=== PATIENT | male | born 1970 | race Caucasian/White ===

== ENCOUNTER 2016-05-01 04:45 | Emergency (ER) | payer OTHER ==
[2016-05-01 04:50] VITALS: BP 132/88; PULSE 87; RESP 16; TEMP 98.4; O2SAT 94
--- NOTE | 2016-05-01 05:47 | EDPHY ---
H & P Stated Complaint: c/o akathisia x 2-3 weeks, pt unable to sleep Time Seen by Provider: 05/01/16 05:41 HPI/ROS: HPI The patient presents with feeling of restlessness that is keeping him up tonight. It has been constant for the last several hours and is rated as severe. He has been taking Artane for this and takes 10mg daily. He used to be on Cogentin but switched to Artane. His psychiatrist is out of town and he is looking for help. REVIEW OF SYSTEMS Constitutional: No fever, no chills. Eyes: No discharge. ENT: No sore throat. Cardiovascular: No chest pain, no palpitations. Respiratory: No cough, no shortness of breath. Gastrointestinal: No abdominal pain, no vomiting. Genitourinary: No hematuria. Musculoskeletal: No back pain. Skin: No rashes. Neurological: No headache. PMHx: schizoaffective, bipolar PHYSICAL General Appearance: Alert, no distress, pacing in the room Eyes: Pupils equal and round no pallor or injection ENT, Mouth: Mucous membranes moist Respiratory: breathing comfortably Neurological: A&O, moves all extremities Skin: Warm and dry, no rashes Musculoskeletal: Neck is supple non tender Extremities: symmetrical, full range of motion Psychiatric: Patient is oriented X 3, there is no agitation Source: Patient - Medical/Surgical History Hx Asthma: No Hx Chronic Respiratory Disease: No Hx Diabetes: No Hx Cardiac Disease: No Hx Renal Disease: No Hx Cirrhosis: No Hx Alcoholism: No Hx HIV/AIDS: No Hx Splenectomy or Spleen Trauma: No Other PMH: sleep apnea, bipolar, schizoaffective d/o, HTN, hypothyroid, nasal septum surg 2005, rt foot surgery 2013, CPAP - Social History Smoking Status: Former smoker Constitutional: Initial Vital Signs Temperature (C) 36.9 C 05/01/16 04:48 Heart Rate 87 05/01/16 04:48 Respiratory Rate 16 05/01/16 04:48 Blood Pressure 132/88 H 05/01/16 04:48 O2 Sat (%) 94 05/01/16 04:48 O2 Delivery Mode Room Air Allergies/Adverse Reactions: cats Allergy (Uncoded 08/10/15 19:50) Home Medications: Medication Instructions Recorded Levothyroxine [Synthroid 137 mcg 137 mcg PO DAILY06 12/24/14 (*)] [place] Carbonate ER [Eskalith Cr 1,350 mg PO HS 12/24/14 450 mg (*)] OXcarbazepine [Trileptal 300mg (*)] 1,500 mg PO DAILY@18 12/24/14 lamOTRIGine [Lamictal] 150 mg PO DAILY 12/24/14 lamOTRIGine [Lamotrigine] 25 mg PO DAILY 12/24/14 Latuda 08/10/15 Neurontin 08/10/15 Artane 05/01/16 Latuda 05/01/16 Losartan Potassium 05/01/16 Mirapex 05/01/16 TRIHEXYPHENIDYL HCL 5 mg PO TID #10 05/01/16 Medical Decision Making Differential Diagnosis: 45 yo M with schizoaffective, bipolar disorder, on multiple psych meds presents with restlessness, feels "akasthesias" he says. DDx includes akasthesia, insomnia, medication side effect. Reviewed his meds and he can increase his Artane dose to 15 mg daily, adding additional 5mg in TID dosing. He will follow up with his psychiatrist. Departure - Departure Disposition: Home, Routine, Self-Care Clinical Impression: Akathisia Condition: Good Instructions: Extrapyramidal Symptoms (ED) Additional Instructions: Please increase your Artane to 5 mg 3 times a day. You should follow up with your psychiatrist next week. Referrals: Dimitris Gama MD [Primary Care Provider] - As per Instructions Prescriptions: TRIHEXYPHENIDYL HCL 5 mg PO TID #10
== END 2016-05-01 06:23 | disposition home or self-care (01) ==
DX: G25.71 Drug induced akathisia (principal); I10 Essential (primary) hypertension; T44.3X5A Adverse effect of other parasympatholytics [anticholinergics and antimuscarinics] and spasmolytics, initial encounter; Z87.891 Personal history of nicotine dependence

== ENCOUNTER 2016-09-30 22:57 | Emergency (ER) | payer OTHER ==
[2016-09-30 23:09] VITALS: O2SAT 97
--- NOTE | 2016-09-30 23:32 | EDPHY ---
H & P Stated Complaint: auditory and visual hallucinations; thyroid level off - Personal History Current Tetanus/Diphtheria Vaccine: Yes - Medical/Surgical History Hx Asthma: No Hx Chronic Respiratory Disease: No Hx Diabetes: No Hx Cardiac Disease: No Hx Renal Disease: No Hx Cirrhosis: No Hx Alcoholism: No Hx HIV/AIDS: No Hx Splenectomy or Spleen Trauma: No Other PMH: PMHx: sleep apnea, bipolar, schizoaffective d/o, HTN, hypothyroid. PSHx: nasal septum surg 2005, rt foot surgery 2013 - Social History Smoking Status: Former smoker Time Seen by Provider: 09/30/16 23:13 HPI/ROS: CHIEF COMPLAINT: visual and auditory hallucination HISTORY OF PRESENT ILLNESS: 45-year-old male with history of bipolar disorder with psychotic features, followed by Dr. Yates Psychiatry, history of hypothyroidism, received a phone call from a nurse at [facility] informing him that his TSH level obtained 3 days ago was elevated and she recommend he go to the emergency department for evaluation. He has no complaints of acute pain or discomfort. He has been experiencing continuous auditory and visual hallucinations for quite some time. These hallucinations are not telling him to hurt himself or hurt anybody else, states that h PRIMARY CARE PROVIDER: Dr. Dimitris Gama REVIEW OF SYSTEMS: A ten point review of systems was performed and is negative with the exception of the items mentioned in the HPI PAST MEDICAL & SURGICAL HISTORY: Bipolar disorder SOCIAL HISTORY:nonsmoker PHYSICAL EXAM (Prior to examination, patient consented to physical exam, hands were washed and my usual and customary physical exam procedures followed) 1) GENERAL: Well-developed, well-nourished, alert and oriented. Appears to be in no acute distress. 2) HEAD: Normocephalic, atraumatic 3) HEENT: Pupils equal, round, reactive to light bilaterally. Sclera anicteric. 4) NECK: Full range of motion, no meningeal signs. 5) LUNGS: Clear auscultation bilaterally, no wheezes, no rhonchi, no retractions. 6) HEART: Regular rate and rhythm, no murmur, no heave, no gallop. 7) ABDOMEN: No guarding, no rebound, no focal tenderness, negative McBurney's 8) MUSCULOSKELETAL: No peripheral edema or discoloration. 9) BACK: No CVA tenderness 10) SKIN: No rash, no petechiae. 11) Psychiatric: Patient is oriented X 3, there is no agitation. DIFFERENTIAL DIAGNOSIS: in no particular include but limited to myxedema coma, thyroid storm, suicidal ideation, homicidal ideation (Andrzej,Pk Layne) Constitutional: Initial Vital Signs Temperature (C) 36.9 C 09/30/16 23:06 Heart Rate 63 09/30/16 23:06 Respiratory Rate 16 09/30/16 23:06 Blood Pressure 147/104 H 09/30/16 23:06 O2 Sat (%) 97 09/30/16 23:06 O2 Delivery Mode Room Air Allergies/Adverse Reactions: cats Allergy (Uncoded 08/10/15 19:50) Home Medications: Medication Instructions Recorded Levothyroxine [Synthroid 137 mcg 137 mcg PO DAILY06 12/24/14 (*)] [place] Carbonate ER [Eskalith Cr 1,350 mg PO HS 12/24/14 450 mg (*)] OXcarbazepine [Trileptal 300mg (*)] 1,500 mg PO DAILY@18 12/24/14 lamoTRIgine [Lamictal] 150 mg PO DAILY 12/24/14 lamoTRIgine [Lamotrigine] 25 mg PO DAILY 12/24/14 Latuda 08/10/15 Neurontin 08/10/15 Artane 05/01/16 Latuda 05/01/16 Losartan Potassium 05/01/16 Mirapex 05/01/16 TRIHEXYPHENIDYL HCL 5 mg PO TID #10 05/01/16 Seroquel 09/30/16 Seroquel 09/30/16 VITAMIN E 09/30/16 Vistaril 09/30/16 Medical Decision Making ED Course/Re-evaluation: PHYSICIAN DOCUMENTATION: The patient was evaluated and managed by the Physician Machinery Repair Maintenance Supervisor. My co- signature indicates that I have reviewed this chart and I agree with the findings and plan of care as documented. I am the secondary supervising physician. (Cathy Byrd) 11:26 p.m.: This patient is comp cooperative. I discussed and reviewed his laboratory results with him. Of note he had a TSH obtained 3 days ago which was mildly elevated at 5.060, he also had a therapeutic lithium level of 1.1 at that time. I have reviewed prior TSH levels with him and these have a fluctuating the past 2 high of 36 in 2013. At this time I think that acute thyroid pathology is less than likely the etiology of his ongoing visual and auditory hallucinations in the presence of his history of bipolar disorder for several years for which he is followed by Dr. Hong Yates. These hallucinations are not telling him to hurt himself or hurt anybody else. At this time I do not think that patient's medication dosages need to be emergently changed. Do not think the patient meets criteria for a 72 hour M1 hold, however I have offered to have our mental health loom checker consult with the patient which he declines. He states that he will contact Dr. Yates in the morning. Also recommend he consult and follow up with his primary care provider Dr. Solorzano tomorrow as well to discuss his other laboratory studies. The meantime should he develop thoughts of hurting self or others or any other symptoms needs to return to the ER immediately for re-evaluation. He feels comfortable with this plan. (Andrzej,Pk Layne) Departure - Departure Disposition: Home, Routine, Self-Care Clinical Impression: Hypothyroid Qualifiers: Hypothyroidism type: unspecified Qualified Code(s): E03.9 - Hypothyroidism, unspecified Condition: Good Instructions: Bipolar Disorder (ED), Hypothyroidism (ED) Additional Instructions: Return emergency department immediately if you develop thoughts of hurting yourself or others, if you develop fevers, flu-like symptoms or any other symptoms that concern you Referrals: Dimitris Gama MD [Primary Care Provider] - 1 day without fail Hong Yates MD [Medical Doctor] - 1 day without fail
[2016-09-30 23:42] VITALS: BP 145/97; PULSE 78; RESP 18; TEMP 98.1
== END 2016-09-30 23:42 | disposition home or self-care (01) ==
DX: E03.9 Hypothyroidism, unspecified (principal); I10 Essential (primary) hypertension; Z87.891 Personal history of nicotine dependence

== ENCOUNTER 2016-10-26 14:43 | Inpatient (IN) | payer OTHER ==
--- NOTE | 2016-10-26 15:12 | EDPHY ---
H & P Stated Complaint: Brought by therapist on M1 hold Time Seen by Provider: 10/26/16 15:00 HPI/ROS: CHIEF COMPLAINT: M1 HISTORY OF PRESENT ILLNESS: 45-year-old male history of schizoaffective disorder arrives on an M1 for increased paranoia believing strangers and acquaintances are calling him "child molester" and other demeaning things, believes others hate him, reluctant to leave his house. He was placed on M1 by therapist and therapist Dr. Rommel Denise have spoken and they would like to have the patient admitted to [facility]. The patient denies suicidal or homicidal ideation. Patient has no complaints of physical pain or discomfort. REVIEW OF SYSTEMS: A ten point review of systems was performed and is negative with the exception of the items mentioned in the HPI PAST MEDICAL & SURGICAL HISTORY: Schizoaffective disorder. Hypothyroid. Bipolar disorder. SOCIAL HISTORY: Denies alcohol or drug use PHYSICAL EXAM (Prior to examination, patient consented to physical exam, hands were washed and my usual and customary physical exam procedures followed) 1) GENERAL: Well-developed, well-nourished, alert and oriented. Appears distressed 2) HEAD: Normocephalic, atraumatic 3) HEENT: Pupils equal, round, reactive to light bilaterally. Sclera anicteric. 4) NECK: Full range of motion, no meningeal signs. 5) LUNGS: Clear auscultation bilaterally, no wheezes, no rhonchi, no retractions. 6) HEART: Regular rate and rhythm, no murmur, no heave, no gallop. 7) ABDOMEN: No guarding, no rebound, no focal tenderness, 8) MUSCULOSKELETAL: No peripheral edema or discoloration. 9) BACK: No CVA tenderness,. 10) SKIN: No rash, no petechiae. 11) Psychiatric: Patient is oriented X 3, there is no agitation. He appears distressed DIFFERENTIAL DIAGNOSIS: in no particular include but limited to schizoaffective disorder, suicidal ideation, homicidal ideation, paranoid - Personal History Current Tetanus Diphtheria and Acellular Pertussis (TDAP): Yes - Medical/Surgical History Hx Asthma: No Hx Chronic Respiratory Disease: No Hx Diabetes: No Hx Cardiac Disease: No Hx Renal Disease: No Hx Cirrhosis: No Hx Alcoholism: No Hx HIV/AIDS: No Hx Splenectomy or Spleen Trauma: No Other PMH: PMHx: sleep apnea, bipolar, schizoaffective d/o, HTN, hypothyroid. PSHx: nasal septum surg 2005, rt foot surgery 2013 - Social History Smoking Status: Former smoker Constitutional: Initial Vital Signs Temperature (C) 36.9 C 10/26/16 14:50 Heart Rate 64 10/26/16 14:50 Respiratory Rate 18 10/26/16 14:50 Blood Pressure 139/100 H 10/26/16 14:50 O2 Sat (%) 98 10/26/16 14:50 O2 Delivery Mode Room Air Allergies/Adverse Reactions: cats Allergy (Uncoded 08/10/15 19:50) Home Medications: Medication Instructions Recorded Artane 10/26/16 Gabapentin [Neurontin 100 MG (*)] 100 mg PO HS 10/26/16 Levothyroxine [Synthroid 137 mcg 137 mcg PO DAILY06 10/26/16 (*)] [place] Carbonate ER [Eskalith Cr 450 mg PO 10/26/16 450 mg (*)] Losartan Potassium [Cozaar 50 mg 50 mg PO 10/26/16 (*)] Lurasidone HCl [Latuda] 120 mg PO DAILY 10/26/16 OXcarbazepine [Trileptal 300mg (*)] 1,200 mg PO 10/26/16 Pramipexole Di-HCl [Mirapex 0.25 0.25 mg PO 10/26/16 mg (*)] QUEtiapine FUMARATE [Seroquel 800 mg PO 10/26/16 300mg (*)] hydrOXYzine HCL [Vistaril] 50 mg PO 10/26/16 lamoTRIgine [LamICTAL 100 MG (*)] 100 mg PO 10/26/16 Medical Decision Making ED Course/Re-evaluation: 6:37 p.m.: Informed by mental health shiftman the patient will be admitted to [address] [place] [address], admitting physician Dr. Gale. EMTALA paperwork completed. - Data Points Laboratory Results: Laboratory Results 10/26/16 15:12 10/26/16 15:12 08/28/17 08/28/17 15:12 15:12 WBC 6.70 10^3/uL 10^3/uL (3.80-9.50) RBC 4.77 10^6/uL 10^6/uL (4.40-6.38) Hgb 14.1 g/dL g/dL (13.7-17.5) Hct 42.0 % % (40.0-51.0) MCV 88.1 fL fL (81.5-99.8) MCH 29.6 pg pg (27.9-34.1) MCHC 33.6 g/dL g/dL (32.4-36.7) RDW 12.6 % % (11.5-15.2) Plt Count 432 10^3/uL H 10^3/uL (150-400) MPV 9.3 fL fL (8.7-11.7) Neut % (Auto) 67.7 % % (39.3-74.2) Lymph % (Auto) 23.9 % % (15.0-45.0) Ceiba % (Auto) 5.1 % % (4.5-13.0) Eos % (Auto) 2.4 % % (0.6-7.6) Baso % (Auto) 0.6 % % (0.3-1.7) Nucleat RBC Rel Count 0.0 % % (0.0-0.2) Absolute Neuts (auto) 4.54 10^3/uL 10^3/uL (1.70-6.50) Absolute Lymphs (auto) 1.60 10^3/uL 10^3/uL (1.00-3.00) Absolute Monos (auto) 0.34 10^3/uL 10^3/uL (0.30-0.80) Absolute Eos (auto) 0.16 10^3/uL 10^3/uL (0.03-0.40) Absolute Basos (auto) 0.04 10^3/uL 10^3/uL (0.02-0.10) Absolute Nucleated RBC 0.00 10^3/uL 10^3/uL (0-0.01) Immature Gran % 0.3 % % (0.0-1.1) Immature Gran # 0.02 10^3/uL 10^3/uL (0.00-0.10) Sodium 140 mEq/L mEq/L (134-144) Potassium 4.3 mEq/L mEq/L (3.5-5.2) Chloride 101 mEq/L mEq/L (97-110) Carbon Dioxide 25 mEq/l mEq/l (22-31) Anion Gap 14 mEq/L mEq/L (8-16) BUN 13 mg/dL mg/dL (7-23) Creatinine 0.9 mg/dL mg/dL (0.7-1.3) Estimated GFR > 60 Glucose 93 mg/dL mg/dL (70-100) Calcium 9.9 mg/dL mg/dL (8.5-10.4) TSH 3.790 uIU/mL uIU/mL (0.465-4.680) [place]ola 1.2 mEq/L mEq/L (0.6-1.2) Ethyl Alcohol < 10 mg/dL mg/dL (0-10) Departure - Departure Disposition: [facility] IP Clinical Impression: Paranoia Schizoaffective disorder Qualifiers: Schizoaffective disorder type: depressive Qualified Code(s): F25.1 - Schizoaffective disorder, depressive type Referrals: Dimitris Gama MD [Primary Care Provider] - As per Instructions
[2016-10-26 15:20] LABS: % IMMATURE GRANULYOCYTES 0.3 % (0.0-1.1); ABSOLUTE IMMATURE GRANULOCYTES 0.02 10^3/uL (0.00-0.10); ADD DIFF? NO; ADD MORPH? NO; ADD SCAN? NO; ATYPICAL LYMPHOCYTE FLAG 10 (0-99); FRAGMENT RBC FLAG 0 (0-99); HEMOGLOBIN 14.1 g/dL (13.7-17.5); LEFT SHIFT FLG 0 (0-99); LIPEMIA HEMOLYSIS FLAG 80 (0-99); MEAN CELL HEMOGLOBIN 29.6 pg (27.9-34.1); MEAN CELL HEMOGLOBIN CONCENTR. 33.6 g/dL (32.4-36.7); MEAN CELL VOLUME 88.1 fL (81.5-99.8); MEAN PLATELET VOLUME 9.3 fL (8.7-11.7); PLATELET CLUMPS FLAG 0 (0-99); PLATELET COUNT 432 10^3/uL (150-400); RED BLOOD CELL COUNT 4.77 10^6/uL (4.40-6.38); RED CELL DISTRIBUTION WIDTH 12.6 % (11.5-15.2)
[2016-10-26 15:41] LABS: ANION GAP 14 mEq/L (8-16); CALCIUM 9.9 mg/dL (8.5-10.4); CARBON DIOXIDE 25 mEq/l (22-31); CHLORIDE 101 mEq/L (97-110); CREATININE 0.9 mg/dL (0.7-1.3); ETHANOL SERUM < 10 mg/dL (0-10); GLOMERULAR FILTRATION RATE > 60; GLUCOSE 93 mg/dL (70-100); LITHIUM 1.2 mEq/L (0.6-1.2); POTASSIUM 4.3 mEq/L (3.5-5.2); SODIUM 140 mEq/L (134-144)
[2016-10-26] MEDS ORDERED: GABAPENTIN 400 MG CAP PO PRN (23:12)
[2016-10-26] MEDS ORDERED: LORazepam 0.5 MG TAB PO PRN (23:15)
[2016-10-26] MEDS ORDERED: MAGNESIUM HYDROXIDE 30 ML UDCUP PO PRN (23:15)
[2016-10-26] MEDS ORDERED: MAG HYDROX/AL HYDROX/SIMETH 30 ML UDCUP PO PRN (23:15)
[2016-10-26] MEDS ORDERED: NICOTINE POLACRILEX 2 MG GUM B PRN (23:15)
[2016-10-26] MEDS ORDERED: OLANZapine DISINTEGR 10 MG TAB PO PRN (23:15)
[2016-10-26] MEDS: LOSARTAN POTASSIUM 50 MG TAB PO SCH (23:49)
[2016-10-27] MEDS: ACETAMINOPHEN 325 MG TAB PO PRN (01:40)
[2016-10-27] MEDS: LOSARTAN POTASSIUM 50 MG TAB PO SCH (09:04)
[2016-10-27] MEDS: LITHIUM CARBONATE ER 450 MG TAB PO SCH ×3 (09:04→20:55)
[2016-10-27] MEDS: PRAMIPEXOLE 0.25 MG TAB PO SCH (09:05)
--- NOTE | 2016-10-27 09:32 | BAPA ---
[f rep st] ADMISSION PSYCHIATRIC ASSESSMENT CHIEF COMPLAINT: The patient is a 45-year-old male with schizoaffective disorder of the bipolar type, whose chief complaint to me today is, "I started hearing voices." HISTORY OF PRESENT ILLNESS: The patient is a 45-year-old man with schizoaffective disorder of the bipolar type who is followed by [facility]. He lives in his own apartment and generally does well. Over the past 2 months, he has been experiencing increased internal stimuli. In particular, he is hearing auditory hallucinations telling him derogatory things. For example, sometimes when he is alone in his apartment and sometimes when he is out in public, he hears a voice inside his head saying, "Nathanael is a child molester." There is no truth to this. This is one of his more common paranoid beliefs. He has also been experiencing paranoid ideas of reference. He thinks his neighbors are mad at him. He tells me at one point, "I can tell when they are leaving; they open the door and slam it." He thinks that some of his neighbors have moved out because of him. At one point, he tells me, "I would piss them off and they would leave." He enjoys playing his guitar, but has stopped doing so because he thinks that people do not like it. He tells me , "I don't play outside any more. It is not well received." He thinks people are critical of his guitar playing. He has been experiencing increased anxiety with these negative thoughts. Over the past 2 months, his treatment team added Seroquel to his medication regimen. The history I have suggests he had done well on a high dose of Latuda for a long period of time until these auditory hallucinations started to increase. I then added Seroquel, which unfortunately has not yet worked to decrease the auditory hallucinations or the anxiety. He denies that he is suicidal. They have no history of previous violence. He is worried that his hygiene is deteriorating, but his hygiene seems appropriate to us on the inpatient psychiatric unit. I wonder if his concerns about his decreased hygiene are delusional in nature. I do not have further extensive past history on him, but we believe it does exist. He has been a patient at the [facility] for several years at this point in time. We will work on collecting collateral information. CURRENT REVIEW OF SYSTEMS: He denies anhedonia, but at the same time readily admits he is not doing very much that is enjoyable at this point time. He describes his mood as, "okay." He tells me he sleeps generally well, but admits over the past 2 days he has not slept well in part because of going to the emergency room and coming to the inpatient psychiatric unit. His energy is generally good. His appetite has been low and he thinks he has lost as much as 20 pounds over the past 2 months. He denies suicidal thinking. He endorses ongoing auditory hallucinations as I described above. He endorses anxiety. He has paranoid ideas of reference. SOCIAL HISTORY: He denies tobacco use. He denies alcohol use. He denies drug use. He denies smoking marijuana. ALLERGIES: He denies any allergies to any medications. CURRENT MEDICATIONS: Eskalith extended release 450 mg 3 times daily. He is on Trileptal 1200 mg in the p.m. with dinner. He is on levothyroxine 0.137 mg daily. He is on Lamictal 25 mg at lunch time and 100 mg at bedtime. He is on 40 mg of Latuda in the morning and 120 mg of Latuda with dinner time. He takes 100 mg of Neurontin in the morning and 500 mg at bedtime. He is on losartan 50 mg daily. He takes Artane 2 mg in the morning and 5 mg at bedtime. He is on Mirapex 0.5 mg in the morning and 1 mg at bedtime. He takes 400 units of vitamin E daily. He is on 50 mg of Vistaril twice daily. His current dose of Seroquel is 800 mg at bedtime. PAST MEDICAL HISTORY: Remarkable for hypothyroidism and hypertension. PAST PSYCHIATRIC HISTORY: Schizoaffective disorder of the bipolar type, currently under care at [facility]. MENTAL STATUS EXAMINATION: He is awake and alert when I go to see him. He is casually dressed and well groomed. He is clean and neat in presentation. He is cooperative with the interview. His speech is not pressured, nor is it rapid. He makes reasonable eye contact during the interview. His stated mood and affect are congruent. There is a reduced range of affect. His thought processes are linear during the interview. He does express ideas of reference and paranoia. He does not appear to respond to internal stimuli during the interview with me and denies that he is experiencing them during our interview. His insight and judgment are both fair. IMPRESSION: The patient is a 45-year-old male with schizoaffective disorder of the bipolar type. This patient shows remarkably good insight into his schizoaffective disorder. He understands that his auditory hallucinations are not real. Interestingly, he does not recognize that he has ideas of reference which are delusional in nature. He does not appear to be having an exacerbation of his underlying mood problem that is clear to me. At the same time, I do wonder if part of the reason why he may be experiencing increased hallucinations is an exacerbation of underlying mood problems and that he may be more depressed, and he is acknowledging. I would build a case that not playing his guitar, not engaging many activities is field representatives director of an anhedonia, and possibly the anhedonia is the beginning of a mood issue, and possibly treating the mood issue might help improve the psychosis. I have spoken to his current outpatient psychiatrist, Hong Yates MD, and we will try first pushing the dose of Seroquel up a little higher. We will also get collateral information from other members of his team. Would give some consideration to starting antidepressants, possibly optimizing the dose of Eskalith. I would even give some consideration to ECT treatments in this patient. DIAGNOSIS: 1. Schizoaffective disorder, bipolar type, current episode unspecified, but possibly depressed. 2. Hypertension. 3. Hypothyroidism. PLAN: 1. Admit on a 72-hour mental health hold. 2. Continue to collect collateral information. 3. Consider increasing Seroquel and then consider other interventions over time. 4. Consider certification. /[id number]/MODL MTDD
[2016-10-27] MEDS: LEVOTHYROXINE 137 MCG TAB PO SCH (10:52)
--- NOTE | 2016-10-27 14:58 | BCON ---
[f rep st] BEHAVIORAL HEALTH CONSULTATION INPATIENT INTERNAL MEDICINE CONSULTATION DATE OF CONSULTATION: 10/27/2016 REFERRING PHYSICIAN: Carlos Rosario MD REASON FOR REFERRAL: Medical clearance for inpatient behavioral health stay. HISTORY OF PRESENT ILLNESS: This patient was referred to the emergency department on an M1 hold by his outpatient mental health provider for increased paranoia. He has history of schizoaffective disorder. He had recent adjustment of his medications with increase in quetiapine. He was evaluated by the mental health team and admitted for further psychiatric care. He reports weight loss with a reduced appetite over several months. He is otherwise without acute complaints. PAST MEDICAL HISTORY: 1. Mental health issues with diagnoses of schizoaffective disorder and bipolar disorder in his chart. 2. Hypothyroidism. 3. Hypertension. 4. Obstructive sleep apnea. PAST SURGICAL HISTORY: He has a history of nasal septum surgery. MEDICATIONS: Prior to admission: 1. Quetiapine 25 mg q.i.d. daily p.r.n., and 800 mg p.o. q.h.s. 2. Hydroxyzine 50 mg p.o. b.i.d. 3. Pramipexole 1 mg p.o. q.h.s., And 0.5 mg p.o. daily. 4. Trihexyphenidyl 5 mg p.o. daily p.r.n., and 5 mg p.o. q.h.s., and 2 mg p.o. daily. 5. Losartan 50 mg p.o. daily. 6. Gabapentin 400 mg daily p.r.n., 100 mg p.o. daily, and 500 mg p.o. q.h.s. 7. Lurasidone 40 mg p.o. daily and 120 mg daily at 1800 hours. 8. Lamotrigine 225 mg daily at 1600 hours, and 100 mg p.o. q.h.s. 9. Levothyroxine 137 mcg p.o. daily. 10. Oxcarbazepine 1200 mg p.o. daily at 1800 hours. 11. [place] 400 mg p.o. t.i.d. ALLERGIES: There are no known drug allergies. There is an allergy listed to cats. REVIEW OF SYSTEMS: He has had poor sleep for several days but usually sleeps well. He has a reduced appetite and has had some weight loss with a greater than 6 kg weight loss documented since April of this year. He denies abdominal pain, constipation, diarrhea, nausea or vomiting. He reports he is taking adequate fluids. He denies cough or dyspnea. He denies chest pain or palpitations. He denies fevers or chills. He reports that he in the past has walked for exercise but has not been doing so recently. Otherwise, a 10-point review of systems is negative. PHYSICAL EXAM: VITAL SIGNS: Blood pressure is 147/100, heart rate is 67, respiratory rate is 16, oxygen saturation is 98% on room air. Temperature is 37.7 degrees centigrade. His weight is 84.4 kg for a body mass index of 24.2. GENERAL: This is a well-nourished, well-developed man lying in bed, cooperative , in no acute distress. HEENT: Extraocular movements are intact. Pupils are equal, round, and reactive to light. Mucous membranes are moist. Dentition is in good condition. Airway is crowded, Mallampati class IV. NECK: Supple. HEART: There is a regular rate and rhythm with no murmurs, rubs, or gallops. LUNGS: Clear to auscultation bilaterally. ABDOMEN: Soft, nontender, nondistended with normoactive bowel sounds. EXTREMITIES: There is no cyanosis , clubbing, or edema. NEUROLOGIC: He is alert and oriented x3. Cranial nerves 2-12 are grossly intact. There is no focal weakness. Sensation is intact to light touch. There is no tremor. There is no bradykinesia. LABORATORY STUDIES: Drawn in the emergency department: CBC showed a slightly elevated platelet count at 432, of no clinical significance, and was otherwise within normal limits. Serum chemistry showed normal BMP and TSH normal at 3.79. Toxicology screen in the serum showed a therapeutic lithium level at 1.2 and was negative for ethyl alcohol. Urine toxicology screen was negative for substances of abuse. ASSESSMENT/RECOMMENDATIONS: 1. Mental health issues. Pending further evaluation per Psychiatry and the mental health team. 2. Weight loss and anorexia, likely related to his current psychiatric condition. There is no indication for any further evaluation at present; however, if with improvement in his psychiatric condition, he continues to have no appetite and continues to lose weight, further evaluation would be indicated. 3. Hypothyroidism. Appears to be appropriately replaced with normal TSH. 4. Hypertension with elevated blood pressure. If blood pressure remains elevated, he should have adjustment in his blood pressure medications, most likely increasing losartan from 50 to 100 mg daily would be the appropriate next step. 5. Obstructive sleep apnea. He reports that he has CPAP at home. If he is to remain on Inpatient Psychiatry longer than a few days, I would advise obtaining his CPAP for use while on the unit. I see no medical contraindications to this patient's continued stay in the inpatient behavioral health unit or to any psychiatric medications or procedures. Thank you very much for including me in the care of this patient and please do not hesitate to contact me or the hospitalist service should there be need for further medical evaluation. /[id number]/MODL MTDD
[2016-10-27] MEDS ORDERED: lamoTRIgine 25 MG TAB PO SCH (16:00)
[2016-10-27] MEDS: LURASIDONE HCL 40 MG TAB PO SCH (17:36)
[2016-10-27] MEDS ORDERED: OXcarbazepine 300 MG TAB PO SCH ×2 (18:00)
[2016-10-27] MEDS: lamoTRIgine 100 MG TAB PO SCH (20:56)
[2016-10-27] MEDS: GABAPENTIN 100 MG CAP PO SCH (20:56)
[2016-10-27] MEDS: QUEtiapine FUMARATE 200 MG TAB PO SCH (20:56)
[2016-10-27] MEDS: TRIHEXYPHENIDYL HCL 5 MG TAB PO SCH (20:57)
[2016-10-27] MEDS: PRAMIPEXOLE 1 MG TAB PO SCH (20:57)
[2016-10-27] MEDS ORDERED: QUEtiapine FUMARATE 200 MG TAB PO SCH (21:00)
[2016-10-28 08:16] LABS: CHOLESTEROL 178 mg/dL (140-200); CHOLESTEROL/HDL RATIO 3.63 RATIO (1.00-4.97); HIGH DENSITY LIPOPROTEIN 49 mg/dL (40-65); LDL/HDL RATIO 1.98 RATIO (1.00-3.64); LITHIUM 1.3 mEq/L (0.6-1.2); LOW DENSITY LIPOPROTEIN 97 mg/dL (70-100); NON-HIGH DENSITY LIPOPROTEIN 129 mg/dL (90-129); TRIGLYCERIDE 160 mg/dL (40-150); VERY LOW DENSITY LIPOPROTEINS 32 mg/dL (8-25)
[2016-10-28] MEDS: PRAMIPEXOLE 0.25 MG TAB PO SCH (08:51)
[2016-10-28] MEDS: LITHIUM CARBONATE ER 450 MG TAB PO SCH ×3 (08:51→21:36)
[2016-10-28] MEDS: LOSARTAN POTASSIUM 50 MG TAB PO SCH (08:51)
[2016-10-28] MEDS: LEVOTHYROXINE 137 MCG TAB PO SCH (09:57)
--- NOTE | 2016-10-28 11:30 | SOAPPROG ---
SOAP Progress Note Assessment/Plan: Assessment: Psychosis NOS Schizophrenia, Schizoaffective, and possible cluster B Personality Disorder We discuss medication options today. We will try to both simplify medications and make them more effective for his internal stimuli. Additional history from [facility] includes that Jean Marie Ernst took care of this patient in the past and thought there was a cluster B PD as a significant, perhaps the main, mental illness. We have noted here a remarkable lack of Negative Symptoms. Mr. Cleary makes good eye contact, and is engaging, shows some appropriate affect when he interacts with others. It is possible his positive symptoms are more related to Cluster B PD. Plan: Decrease Trileptal, taper off Consider increasing quetiapine clonazepam 0.5 mg BID scheduled to help control anxiety 10/28/16 11:30 Subjective: "I got really offended by that woman's comment." Slept 10 hours last night. Reports he is hearing comments from other people. Thinks other people are talking about him on the unit. Not clear i f this is abnormal internal stimuli or misinterpreting other people's comments. I attempt to reassure him, but he takes this as contradicting him and causes him to get upset. Reports sleep was good, and appetite good as well. Objective: Vital Signs Temp Pulse Resp BP Pulse Ox 36.4 C 77 14 118/75 100 10/28/16 08:54 10/28/16 08:54 10/28/16 08:54 10/28/16 08:54 10/28/16 08:54 Medications Generic Name Dose Route Start Last Admin Trade Name Freq PRN Reason Stop Dose Admin Pramipexole Dihydrochloride 0.5 mg 10/27/16 09:00 10/28/16 08:51 Mirapex PO 04/25/17 08:59 0.5 mg DAILY MARY JANE Pramipexole Dihydrochloride 1 mg 10/27/16 21:00 10/27/16 20:57 Mirapex PO 04/25/17 20:59 1 mg HS MARY JANE Gabapentin 500 mg 10/27/16 21:00 10/27/16 20:56 Neurontin PO 04/25/17 20:59 500 mg HS MARY JANE Lamotrigine 100 mg 10/27/16 21:00 10/27/16 20:56 Lamictal PO 04/25/17 20:59 100 mg HS MARY JANE Levothyroxine Sodium 137 mcg 10/27/16 10:00 10/28/16 09:57 Synthroid PO 04/25/17 09:59 137 mcg DAILY@1000 [facility] [place] Carbonate 450 mg 10/27/16 09:00 10/28/16 08:51 Eskalith Cr PO 04/25/17 08:59 450 mg TID [facility] Losartan Potassium 50 mg 10/26/16 23:15 10/28/16 08:51 Cozaar PO 04/24/17 23:14 50 mg DAILY [facility] Lurasidone HCl 120 mg 10/27/16 18:00 10/27/16 17:36 Latuda PO 04/25/17 17:59 120 mg DAILY@1800 [facility] Oxcarbazepine 600 mg 10/27/16 18:00 10/27/16 17:36 Trileptal PO 04/25/17 17:59 600 mg DAILY@1800 [facility] Quetiapine Fumarate 900 mg 10/27/16 21:00 10/27/16 20:56 Seroquel PO 04/25/17 20:59 900 mg HS [facility] Trihexyphenidyl HCl 5 mg 10/27/16 21:00 10/27/16 20:57 Trihexyphenidyl Hcl PO 04/25/17 20:59 5 mg HS [facility] MSE Awake, alert, casually dressed, reasonable grooming speech reasonable in rate, largely monotone Mood and affect congruent with increased range thought processes linear, appears to respond to internal stimuli during interview with me limited insight. ICD10 Worksheet Patient Problems: Problems Problem Status Onset Paranoia Acute Schizoaffective disorder Acute Schizoaffective disorder Active Bipolar disease, manic Acute Hypothyroid Acute
[2016-10-28] MEDS: clonazePAM 0.5 MG TAB PO SCH ×2 (13:37→19:33)
[2016-10-28] MEDS: LURASIDONE HCL 40 MG TAB PO SCH (17:34)
[2016-10-28] MEDS: TRIHEXYPHENIDYL HCL 5 MG TAB PO SCH ×2 (19:33→21:36)
[2016-10-28] MEDS: GABAPENTIN 100 MG CAP PO SCH (21:36)
[2016-10-28] MEDS: lamoTRIgine 100 MG TAB PO SCH (21:36)
[2016-10-28] MEDS: PRAMIPEXOLE 1 MG TAB PO SCH (21:37)
[2016-10-28] MEDS: QUEtiapine FUMARATE 200 MG TAB PO SCH (21:37)
[2016-10-29] MEDS: LITHIUM CARBONATE ER 450 MG TAB PO SCH ×3 (08:49→21:34)
[2016-10-29] MEDS: clonazePAM 0.5 MG TAB PO SCH ×2 (08:49→21:34)
[2016-10-29] MEDS: PRAMIPEXOLE 0.25 MG TAB PO SCH (08:49)
[2016-10-29] MEDS: LEVOTHYROXINE 137 MCG TAB PO SCH (08:50)
[2016-10-29] MEDS: LOSARTAN POTASSIUM 50 MG TAB PO SCH (08:50)
[2016-10-29] MEDS: ACETAMINOPHEN 325 MG TAB PO PRN (13:25)
--- NOTE | 2016-10-29 14:25 | SOAPPROG ---
SOAP Progress Note Assessment/Plan: Assessment: Psychosis NOS Schizophrenia, Schizoaffective, and possible cluster B Personality Disorder We continue to discuss medication options. We are trying to simplify medications and maintain control of AH and IOR. We hope reducing the dose of antipsychotic will help reduce nighttime RLS/akathisia. Plan: Tapered off Trileptal Consider increasing quetiapine clonazepam 0.5 mg BID scheduled to help control anxiety Decrease Latuda to 80 mg QPM Discontinue gabapentin 10/29/16 14:43 Subjective: "I get akathisia at night." Reports good sleep, but sleep is sometimes difficult because of restless legs. Has noticed more restless legs since going up to 900 mg quetiapine at HS, but this increase helped decrease internal stimuli. He continues to have IOR that others think he is a pedophile, but he is not hearing AH saying this to him. Likes his music. Discussed with staff and he can play his guitar if someone can bring it here. He should be supervised while playing his guitar. Objective: Vital Signs Temp Pulse Resp BP Pulse Ox 36.6 C 50 L 14 118/76 97 10/29/16 06:27 10/29/16 06:27 10/29/16 06:27 10/29/16 06:27 10/29/16 06:27 Laboratory Tests 10/28/16 07:00 Triglycerides 160 H Cholesterol 178 LDL Cholesterol, Calc 97 HDL Cholesterol 49 [place] 1.3 H Medications Generic Name Dose Route Start Last Admin Trade Name Freq PRN Reason Stop Dose Admin Lurasidone HCl 120 mg 10/27/16 18:00 10/28/16 17:34 Latuda PO 04/25/17 17:59 120 mg DAILY@1800 MARY JANE Lamotrigine 100 mg 10/27/16 21:00 10/28/16 21:36 Lamictal PO 04/25/17 20:59 100 mg HS MARY JANE Levothyroxine Sodium 137 mcg 10/27/16 10:00 10/29/16 08:50 Synthroid PO 04/25/17 09:59 137 mcg DAILY@1000 MARY JANE [place] Carbonate 450 mg 10/27/16 09:00 10/29/16 08:49 Eskalith Cr PO 04/25/17 08:59 450 mg TID MARY JANE Clonazepam 0.5 mg 10/28/16 11:45 10/29/16 08:49 Klonopin PO 04/26/17 11:44 0.5 mg BID MARY JANE Gabapentin 500 mg 10/27/16 21:00 10/28/16 21:36 Neurontin PO 04/25/17 20:59 500 mg HS MARY JANE Losartan Potassium 50 mg 10/26/16 23:15 10/29/16 08:50 Cozaar PO 04/24/17 23:14 50 mg DAILY MARY JANE Pramipexole Dihydrochloride 0.5 mg 10/27/16 09:00 10/29/16 08:49 Mirapex PO 04/25/17 08:59 0.5 mg DAILY MARY JANE Pramipexole Dihydrochloride 1 mg 10/27/16 21:00 10/28/16 21:37 Mirapex PO 04/25/17 20:59 1 mg HS [facility] Quetiapine Fumarate 900 mg 10/27/16 21:00 10/28/16 21:37 Seroquel PO 04/25/17 20:59 900 mg HS MARY JANE Trihexyphenidyl HCl 5 mg 10/27/16 21:00 10/28/16 21:36 Trihexyphenidyl Hcl PO 04/25/17 20:59 5 mg HS MARY JANE MSE Awake, alert, cooperative with me Speech normal in rate and tone, not pressured, not rapid Mood/affect congruent with a reasonable range linear thought processes, does not appear to respond to internal stimuli today concrete thoughts limited insight/judgment ICD10 Worksheet Patient Problems: Problems Problem Status Onset Paranoia Acute Schizoaffective disorder Acute Schizoaffective disorder Active Bipolar disease, manic Acute Hypothyroid Acute
[2016-10-29] MEDS: LURASIDONE HCL 40 MG TAB PO SCH (16:49)
[2016-10-29] MEDS: QUEtiapine FUMARATE 200 MG TAB PO SCH (21:33)
[2016-10-29] MEDS: PRAMIPEXOLE 1 MG TAB PO SCH (21:33)
[2016-10-29] MEDS: TRIHEXYPHENIDYL HCL 5 MG TAB PO SCH (21:34)
[2016-10-29] MEDS: lamoTRIgine 100 MG TAB PO SCH (21:34)
[2016-10-30] MEDS: PRAMIPEXOLE 0.25 MG TAB PO SCH (08:28)
[2016-10-30] MEDS: LOSARTAN POTASSIUM 50 MG TAB PO SCH (08:29)
[2016-10-30] MEDS: LITHIUM CARBONATE ER 450 MG TAB PO SCH ×3 (08:29→19:54)
[2016-10-30] MEDS: LEVOTHYROXINE 137 MCG TAB PO SCH (08:29)
[2016-10-30] MEDS: ACETAMINOPHEN 325 MG TAB PO PRN (08:30)
[2016-10-30] MEDS: clonazePAM 0.5 MG TAB PO SCH ×2 (08:30→19:50)
[2016-10-30] MEDS: LORazepam 0.5 MG TAB PO PRN ×2 (11:51→18:28)
--- NOTE | 2016-10-30 13:29 | SOAPPROG ---
SOAP Progress Note Assessment/Plan: Assessment: Psychosis NOS Schizophrenia, Schizoaffective, and possible cluster B Personality Disorder We continue to discuss medication options. We are trying to simplify medications and maintain control of AH and IOR. We hope reducing the dose of antipsychotic will help reduce nighttime RLS/akathisia. More irritable today. More IOR/paranoia. Plan: Tapered off Trileptal Consider increasing quetiapine. Consider increasing Latuda. clonazepam 0.5 mg BID scheduled to help control anxiety Decrease Latuda to 80 mg QPM Discontinue gabapentin OK to try some as needed lorazepam. 10/30/16 13:34 Subjective: "I've heard it, I know it's real." "I'd like to get out of here as soon as possible." Slept 12 hours. Endorses ongoing paranoid thoughts that people are talking about him being a pedophile. Not sure if this is a hallucination or an IOR. Some irritability and some paranoia today. Asks about returning home, but [facility] does not think he is back to his baseline and can not set up support for this weekend. Mr. Cleary was upset when I relayed that we recommended he remain through the weekend. Objective: Vital Signs Temp Pulse Resp BP Pulse Ox 36.4 C 78 12 130/86 H 100 10/30/16 06:00 10/30/16 08:25 10/30/16 08:25 10/30/16 08:25 10/30/16 06:00 Medications Generic Name Dose Route Start Last Admin Trade Name Freq PRN Reason Stop Dose Admin Quetiapine Fumarate 900 mg 10/27/16 21:00 10/29/16 21:33 Seroquel PO 04/25/17 20:59 900 mg HS MARY JANE Clonazepam 0.5 mg 10/28/16 11:45 10/30/16 08:30 Klonopin PO 04/26/17 11:44 0.5 mg BID MARY JANE Lamotrigine 100 mg 10/27/16 21:00 10/29/16 21:34 Lamictal PO 04/25/17 20:59 100 mg HS MARY JANE Levothyroxine Sodium 137 mcg 10/27/16 10:00 10/30/16 08:29 Synthroid PO 04/25/17 09:59 137 mcg DAILY@1000 MARY JANE [place] Carbonate 450 mg 10/27/16 09:00 10/30/16 08:29 Eskalith Cr PO 04/25/17 08:59 450 mg TID [facility] Losartan Potassium 50 mg 10/26/16 23:15 10/30/16 08:29 Cozaar PO 04/24/17 23:14 50 mg DAILY MARY JANE Lurasidone HCl 80 mg 10/29/16 14:24 10/29/16 16:49 Latuda PO 04/25/17 17:59 80 mg DAILY@1800 MARY JANE Pramipexole Dihydrochloride 0.5 mg 10/27/16 09:00 10/30/16 08:28 Mirapex PO 04/25/17 08:59 0.5 mg DAILY MARY JANE Pramipexole Dihydrochloride 1 mg 10/27/16 21:00 10/29/16 21:33 Mirapex PO 04/25/17 20:59 1 mg HS [facility] Trihexyphenidyl HCl 5 mg 10/27/16 21:00 10/29/16 21:34 Trihexyphenidyl Hcl PO 04/25/17 20:59 5 mg HS MARY JANE Laboratory Tests 10/26/16 10/28/16 15:12 07:00 Estimated GFR > 60 Triglycerides 160 H Cholesterol 178 LDL Cholesterol, Calc 97 HDL Cholesterol 49 TSH 3.790 [place] 1.3 H MSE Awake, alert, casually dressed, grooming reasonable Mood and affect incongruent. Reports good mood but affect labile and hostile Speech normal in slow in rate, monotonous Endorses abnormal internal stimuii, not clear if this is AH or IOR, but with significant paranoia lacks insight and judgment ICD10 Worksheet Patient Problems: Problems Problem Status Onset Paranoia Acute Schizoaffective disorder Acute Schizoaffective disorder Active Bipolar disease, manic Acute Hypothyroid Acute
[2016-10-30] MEDS: LURASIDONE HCL 40 MG TAB PO SCH (16:36)
[2016-10-30] MEDS: QUEtiapine FUMARATE 200 MG TAB PO SCH (19:48)
[2016-10-30] MEDS: PRAMIPEXOLE 1 MG TAB PO SCH (19:49)
[2016-10-30] MEDS: lamoTRIgine 100 MG TAB PO SCH (19:50)
[2016-10-30] MEDS: TRIHEXYPHENIDYL HCL 5 MG TAB PO SCH (19:50)
[2016-10-31] MEDS: LORazepam 0.5 MG TAB PO PRN ×4 (06:49→22:05)
[2016-10-31] MEDS: clonazePAM 0.5 MG TAB PO SCH ×2 (08:55→20:59)
[2016-10-31] MEDS: LITHIUM CARBONATE ER 450 MG TAB PO SCH ×3 (08:58→20:59)
[2016-10-31] MEDS: PRAMIPEXOLE 0.25 MG TAB PO SCH ×2 (08:58→09:01)
[2016-10-31] MEDS: LOSARTAN POTASSIUM 50 MG TAB PO SCH (08:59)
[2016-10-31] MEDS: LEVOTHYROXINE 137 MCG TAB PO SCH (10:05)
--- NOTE | 2016-10-31 13:47 | SOAPPROG ---
SOAP Progress Note Assessment/Plan: Assessment: Per Dr. Rosario's note on 10/30/16: Psychosis NOS Schizophrenia, Schizoaffective, and possible cluster B Personality Disorder We continue to discuss medication options. We are trying to simplify medications and maintain control of AH and IOR. We hope reducing the dose of antipsychotic will help reduce nighttime RLS/akathisia. More irritable today. More IOR/paranoia. Plan: Tapered off Trileptal Consider increasing quetiapine. Consider increasing Latuda. clonazepam 0.5 mg BID scheduled to help control anxiety Decrease Latuda to 80 mg QPM Discontinue gabapentin OK to try some as needed lorazepam. 10/31/16 13:39 Plan: 1. Continue Latuda and Seroquel for psychotic sxs. Agree with Dr. Rosario's plan to simplify patient's psychotropic regimen in order to reduce of unwanted adverse side effects and drug interactions. There is no evidence that 2 SGA's are more effective than a single SGA for mood or psychotic disorders. Therefore , there is little compelling evidence to support use of both Latuda and Seroquel. When MD explains the risks and lack of benefits, patient states Seroquel helps with sleep. 2. Ativan PRN for anxiety/agitation 3. There are no EPS present, and patient denies currently experiencing akathisia. He does report restless legs at night. He has been taking Artane and Mirapex for a while with unclear benefits. Many of his meds were prescribed by OP psychiatrist, and according to patient meds would often be added, but few would be discontinued once new meds were started. This MD suggested patient might want to try tapering off some more meds and monitoring in order to decide what is the least amount and lowest dose of meds that are effective and reduce the possibility of adverse effects. Patient agreed with this in theory, but said he wanted to discuss with his outpatient provider before making any more changes. Subjective: Met with patient, reviewed the chart and discussed with staff. Patient says it was "my decision to come here." He says "I think it was time to come to hospital " because it seemed "dangerous" to him to "be screwing around with my meds" while he was an outpatient. He says he wasn't "doing good" at home and was "pissing my neighbors off" by his irritability and "bad behaviors." When patient was first admitted, he reported hearing voices that were derogatory, telling him he was a pedophile. Patient thought staff were talking about him being a pedophile. He is less paranoid and suspicious now. He says he feels "a lot better" and has improved sleep, improved appetite, and "better mood." He also says his "anger is less." He denies any AH/VH today and denies any thoughts , plan or intent to hurt himself or anyone else. Objective: Vital Signs Temp Pulse Resp BP Pulse Ox 36.4 C 69 14 133/95 H 100 10/30/16 06:00 10/31/16 06:28 10/31/16 06:28 10/31/16 08:59 10/30/16 06:00 MSE: Well-groomed, jeans and T-shirt, calm, cooperative, no restlessness, fidgeting or akathisia present. Affect: Euthymic Mood: "Better" TP: More organized, goal-directed TC: No AH/VH, less paranoia, no delusions, denies SI/ HI Insight/Judgment: Fair - Time Spent With Patient Time Spent With Patient: 25" - Pending Discharge Pending Discharge Within 24 Hours: No ICD10 Worksheet Patient Problems: Problems Problem Status Onset Paranoia Acute Schizoaffective disorder Acute Schizoaffective disorder Active Bipolar disease, manic Acute Hypothyroid Acute
[2016-10-31] MEDS: ACETAMINOPHEN 325 MG TAB PO PRN (14:56)
[2016-10-31] MEDS: LURASIDONE HCL 40 MG TAB PO SCH (16:13)
[2016-10-31] MEDS: QUEtiapine FUMARATE 200 MG TAB PO SCH (20:59)
[2016-10-31] MEDS: lamoTRIgine 100 MG TAB PO SCH (20:59)
[2016-10-31] MEDS: TRIHEXYPHENIDYL HCL 5 MG TAB PO SCH (20:59)
[2016-10-31] MEDS: PRAMIPEXOLE 1 MG TAB PO SCH (20:59)
[2016-11-01] MEDS: LOSARTAN POTASSIUM 50 MG TAB PO SCH (08:52)
[2016-11-01] MEDS: LITHIUM CARBONATE ER 450 MG TAB PO SCH ×3 (08:52→20:06)
[2016-11-01] MEDS: clonazePAM 0.5 MG TAB PO SCH ×2 (08:52→20:05)
[2016-11-01] MEDS: LEVOTHYROXINE 137 MCG TAB PO SCH (09:07)
[2016-11-01] MEDS: LORazepam 0.5 MG TAB PO PRN ×3 (09:07→18:53)
--- NOTE | 2016-11-01 13:53 | SOAPPROG ---
SOAP Progress Note Assessment/Plan: Assessment: Per Dr. Rosario's note on 10/30/16: Psychosis NOS Schizophrenia, Schizoaffective, and possible cluster B Personality Disorder We continue to discuss medication options. We are trying to simplify medications and maintain control of AH and IOR. We hope reducing the dose of antipsychotic will help reduce nighttime RLS/akathisia. More irritable today. More IOR/paranoia. Plan: Tapered off Trileptal Consider increasing quetiapine. Consider increasing Latuda. clonazepam 0.5 mg BID scheduled to help control anxiety Decrease Latuda to 80 mg QPM Discontinue gabapentin OK to try some as needed lorazepam. 10/31/16 13:39 Plan: 1. Continue Latuda and Seroquel for psychotic sxs. Agree with Dr. Rosario's plan to simplify patient's psychotropic regimen in order to reduce of unwanted adverse side effects and drug interactions. There is no evidence that 2 SGA's are more effective than a single SGA for mood or psychotic disorders. Therefore , there is little compelling evidence to support use of both Latuda and Seroquel. When MD explains the risks and lack of benefits, patient states Seroquel helps with sleep. 2. Ativan PRN for anxiety/agitation 3. There are no EPS present, and patient denies currently experiencing akathisia. He does report restless legs at night. He has been taking Artane and Mirapex for a while with unclear benefits. Many of his meds were prescribed by OP psychiatrist, and according to patient meds would often be added, but few would be discontinued once new meds were started. This MD suggested patient might want to try tapering off some more meds and monitoring in order to decide what is the least amount and lowest dose of meds that are effective and reduce the possibility of adverse effects. Patient agreed with this in theory, but said he wanted to discuss with his outpatient provider before making any more changes. 11/01/16 13:46 Plan: 1. Patient still reporting "a lot of anxiety." He is taking Ativan as often as he can to manage his anxiety. MD suggested other non-pharmacologic ways to manage his anxiety, including breathing exercises, PMR, visualization, guided imagery, and demonstrated how they can be used. However, patient is convinced he needs meds for every situation. 2. Complains of akathisia only at night and only when he wakes up from sleep and feels "restless" like he needs to "take a walk." However, he says at home he would walk to [facility] and "fall asleep on the concrete patio" in their yard. His description does not meet criteria for akathisia. Therefore, this MD does not feel that Mirapex or Artane are indicated. Would recommended replacing with Cogentin for EPS prophylaxis. The patient does not endorse sxs of RLS, he only starts to feel the urge to get up and pace after he has woken up from sleep. This does not meet criteria for RLS. Patient says he is willing to stop taking Artane, but not sure he wants to stop the Mirapex for now. Subjective: Met with patient and discussed with staff. Patient is still fixated on fears that peers are talking about him being a pedophile. Patient says he is not going to group b/c he "doesn't want to upset" his peers. He thinks they will be upset b/c "I think they have this idea" that he's molested children b/c "I heard them talking when I pass them in the freed." MD says he has not heard anyone talk about the patient this way. Patient says, "I know you haven't heard it, but I have." Patient says he gets "really nervous" before his POC come to visit. He doesn't like them seeing him in hospital with "all this shit going on. " When asked what he means, patient says he is referring to his peers on the unit and "the way it is here." He denies any AH/VH, no SI/HI. Objective: Vital Signs Temp Pulse Resp BP Pulse Ox 36.3 C 80 14 109/77 97 11/01/16 06:00 11/01/16 06:00 11/01/16 06:00 11/01/16 08:52 11/01/16 06:00 MSE: Overweight, wearing T-shirt and blazer. Affect: Euthymic Mood: "OK" TP: Illogical TC: Endorses paranoid delusions, denies SI/HI, denies AH/VH Insight/ Judgment: Poor - Time Spent With Patient Time Spent With Patient: 25" - Pending Discharge Pending Discharge Within 24 Hours: No Pending Discharge Within 48 Hours: Yes Pending Discharge Date: 11/03/16 (Pending discharge to [facility] or [facility] if available ) Pending Discharge Time: 11:00 ICD10 Worksheet Patient Problems: Problems Problem Status Onset Paranoia Acute Schizoaffective disorder Acute Schizoaffective disorder Active Bipolar disease, manic Acute Hypothyroid Acute
[2016-11-01] MEDS: LURASIDONE HCL 40 MG TAB PO SCH (18:54)
[2016-11-01] MEDS: QUEtiapine FUMARATE 200 MG TAB PO SCH (20:05)
[2016-11-01] MEDS: lamoTRIgine 100 MG TAB PO SCH (20:06)
[2016-11-01] MEDS: PRAMIPEXOLE 1 MG TAB PO SCH (20:06)
[2016-11-02] MEDS: LITHIUM CARBONATE ER 450 MG TAB PO SCH ×3 (08:34→20:34)
[2016-11-02] MEDS: clonazePAM 0.5 MG TAB PO SCH ×2 (08:34→20:07)
[2016-11-02] MEDS: LOSARTAN POTASSIUM 50 MG TAB PO SCH (08:34)
[2016-11-02] MEDS: LEVOTHYROXINE 137 MCG TAB PO SCH (10:38)
[2016-11-02] MEDS: LORazepam 0.5 MG TAB PO PRN ×2 (11:32→15:32)
--- NOTE | 2016-11-02 13:28 | SOAPPROG ---
[facility] Progress Note Assessment/Plan: Assessment: Plan: 11/02/16 13:30 Improved over admission. CCM. Await input from CR. Subjective: Pt seen, discussed with staff. Reports feeling "ready to go." States his parents are in town and he wants to go home to his apartment for a day or two prior to entering [facility]. I discussed with him that we need to collaborate with CR on the d/c plan and will go with what they and he agree on. Objective: Vital Signs Temp Pulse Resp BP Pulse Ox 36.4 C 86 16 141/85 H 100 11/02/16 09:00 11/02/16 09:00 11/02/16 09:00 11/02/16 09:00 11/02/16 09:00 MSE: Calm, coop. Affect is generally euthymic, slightly anxious. Mood is "good." TP generally linear. TC reveals some IOR's, especially in regards to believing others are conspiring against him and calling him a child molester. - Time Spent With Patient Time Spent With Patient: 25" ICD10 Worksheet Patient Problems: Problems Problem Status Onset Paranoia Acute Schizoaffective disorder Acute Schizoaffective disorder Active Bipolar disease, manic Acute Hypothyroid Acute
[2016-11-02] MEDS: lamoTRIgine 100 MG TAB PO SCH (20:07)
[2016-11-02] MEDS: PRAMIPEXOLE 1 MG TAB PO SCH (20:07)
[2016-11-02] MEDS: LURASIDONE HCL 40 MG TAB PO SCH (20:07)
[2016-11-02] MEDS: QUEtiapine FUMARATE 200 MG TAB PO SCH (20:08)
[2016-11-02] MEDS: ACETAMINOPHEN 325 MG TAB PO PRN (21:17)
[2016-11-03] MEDS: LEVOTHYROXINE 137 MCG TAB PO SCH (08:35)
[2016-11-03] MEDS: LITHIUM CARBONATE ER 450 MG TAB PO SCH ×3 (08:35→21:06)
[2016-11-03] MEDS: clonazePAM 0.5 MG TAB PO SCH ×2 (08:36→20:10)
[2016-11-03] MEDS: LOSARTAN POTASSIUM 50 MG TAB PO SCH (08:36)
--- NOTE | 2016-11-03 16:28 | SOAPPROG ---
[facility] Progress Note Assessment/Plan: Assessment: Plan: 11/02/16 13:30 Improved over admission. CCM. Await input from CR. 11/03/16 16:28 Continued improvement. CCM. Likely d/c to tomorrow. Subjective: Pt seen, discussed with staff. Reports feeling "good and ready to go." States he is willing to go to , but believes he can return to his home as well. Dr. Denise states he will interview pt this afternoon and likely take him at tomorrow. Objective: Vital Signs Temp Pulse Resp BP Pulse Ox 36.4 C 89 12 121/76 H 100 11/02/16 09:00 11/03/16 08:47 11/03/16 08:47 11/03/16 08:47 11/03/16 08:47 MSE: Calm, coop. Affect is slightly blunted, stable, approp. Mood is "good." TP generally linear. TC reveals no overt psychosis. No mention of IOR's/ accusations of being a child molester. - Time Spent With Patient Time Spent With Patient: 25" ICD10 Worksheet Patient Problems: Problems Problem Status Onset Paranoia Acute Schizoaffective disorder Acute Schizoaffective disorder Active Bipolar disease, manic Acute Hypothyroid Acute
[2016-11-03] MEDS: LURASIDONE HCL 40 MG TAB PO SCH (18:08)
[2016-11-03] MEDS: QUEtiapine FUMARATE 200 MG TAB PO SCH (20:05)
[2016-11-03] MEDS: PRAMIPEXOLE 1 MG TAB PO SCH (20:08)
[2016-11-03] MEDS: lamoTRIgine 100 MG TAB PO SCH (20:09)
[2016-11-04] MEDS: LEVOTHYROXINE 137 MCG TAB PO SCH (08:40)
[2016-11-04] MEDS: LITHIUM CARBONATE ER 450 MG TAB PO SCH ×3 (08:40→20:26)
[2016-11-04] MEDS: clonazePAM 0.5 MG TAB PO SCH ×2 (08:40→20:26)
[2016-11-04] MEDS: LOSARTAN POTASSIUM 50 MG TAB PO SCH (08:41)
[2016-11-04] MEDS: LORazepam 0.5 MG TAB PO PRN (16:45)
[2016-11-04] MEDS: LURASIDONE HCL 40 MG TAB PO SCH (18:23)
[2016-11-04] MEDS: PRAMIPEXOLE 1 MG TAB PO SCH (20:25)
[2016-11-04] MEDS: lamoTRIgine 100 MG TAB PO SCH (20:26)
[2016-11-04] MEDS: QUEtiapine FUMARATE 200 MG TAB PO SCH (20:26)
[2016-11-05 06:35] VITALS: BP 112/71; PULSE 63; RESP 12; TEMP 97.7; O2SAT 99
[2016-11-05] MEDS: LITHIUM CARBONATE ER 450 MG TAB PO SCH (08:08)
[2016-11-05] MEDS: LOSARTAN POTASSIUM 50 MG TAB PO SCH (08:09)
[2016-11-05] MEDS: clonazePAM 0.5 MG TAB PO SCH (08:09)
[2016-11-05] MEDS: LEVOTHYROXINE 137 MCG TAB PO SCH (09:13)
== END 2016-11-05 10:00 | disposition home or self-care (01) | DRG 885 ==
LOC: BBEH 22:15
PROVIDERS: ADMIT Psychiatry & Neurology Psychiatry; ATTEND Psychiatry & Neurology Psychiatry
DX: F25.0 Schizoaffective disorder, bipolar type (principal); F20.9 Schizophrenia, unspecified; E03.9 Hypothyroidism, unspecified; I10 Essential (primary) hypertension; G47.33 Obstructive sleep apnea (adult) (pediatric)
CPT/HCPCS: 80305; G0480

== ENCOUNTER → 2017-11-22 | Outpatient (CLI) | payer OTHER, MEDICAID | LOC: FCPNEURO 22:54 | PROVIDERS: ATTEND Student in an Organized Health Care Education/Training Program | DX: G47.33 Obstructive sleep apnea (adult) (pediatric) (principal) ==